=== PATIENT | female | born 1995 ===

== ENCOUNTER → 2019-02-18 | Outpatient (REF) | payer BC | LOC: M LAB REF 09:20 | PROVIDERS: ATTEND Physician Assistant | DX: R30.0 Dysuria (principal) ==

== ENCOUNTER → 2019-02-21 | Outpatient (REF) | payer BC ==
[2019-02-21 20:35] LABS: CHLAMYDIA DNA AMPLIFICATION NEGATIVE (NEGATIVE); GC DNA AMPLIFICATION NEGATIVE (NEGATIVE)
== END ==
LOC: M LAB REF 16:15
PROVIDERS: ATTEND Nurse Practitioner Family
DX: R30.0 Dysuria (principal)

== ENCOUNTER → 2024-06-14 | Outpatient (REF) | payer OTHER ==
[2024-06-14 14:03] LABS: BASO # 0.1 10^3/uL (0.0-0.2); BASO % 1.1 % (0.0-1.0); EOS # 0.1 10^3/uL (0.0-0.5); EOS % 1.1 % (0.0-3.0); HEMATOCRIT 36.1 % (36.0-47.0); HEMOGLOBIN 12.2 g/dl (12.0-15.5); LYMPH # 1.5 10^3/uL (1.5-5.0); LYMPH % 33.6 % (24.0-44.0); MEAN CORPUSCULAR HEMOGLOBIN 31.4 pg (27.0-33.0); MEAN CORPUSCULAR HGB CONC 33.8 g/dl (32.0-36.5); MONO # 0.6 10^3/uL (0.0-0.8); MONO % 12.5 % (2.0-8.0); NEUTROPHILS # 2.3 10^3/uL (1.5-8.5); NEUTROPHILS % 51.5 % (36.0-66.0); PLATELET COUNT, AUTOMATED 260 10^3/uL (150-450); RED BLOOD COUNT 3.88 10^6/uL (4.00-5.40); WHITE BLOOD COUNT 4.6 10^3/uL (4.0-10.0)
[2024-06-14 14:35] LABS: HEMOGLOBIN A1c 4.3 % (4.0-6.0)
[2024-06-14 14:40] LABS: TOTAL IRON BINDING CAPACITY 351 UG/DL (250-425)
[2024-06-14 14:42] LABS: ALBUMIN 3.8 G/DL (3.2-5.2); ALKALINE PHOSPHATASE 229 U/L (35-104); ALT/SGPT 166 U/L (7.0-40); AST/SGOT 112 U/L (<34); BILIRUBIN,TOTAL 0.4 MG/DL (0.3-1.2); BLOOD UREA NITROGEN 20 MG/DL (9-23); CALCIUM LEVEL 9.2 MG/DL (8.5-10.1); CARBON DIOXIDE LEVEL 26 MMOL/L (20-31); CHLORIDE LEVEL 104 MMOL/L (98-107); CHOLESTEROL LEVEL 158 MG/DL (<200); CHOLESTEROL RISK RATIO 2.66 (<5); CREATININE FOR GFR 0.83 MG/DL (0.55-1.30); FERRITIN 45.6 NG/ML (7.3-270.7); GLOMERULAR FILTRATION RATE > 60.0 (>60); GLUCOSE, FASTING 89 MG/DL (60-100); HDL CHOLESTEROL 59.2 MG/DL (>40); IRON (FE) 83 UG/DL (50-170); LDL CHOLESTEROL 82.4 MG/DL (<100); NON-HDL-C 98.8 MG/DL; PERCENT SATURATION 23.6 % (13.2-45.0); POTASSIUM SERUM 4.7 MMOL/L (3.5-5.1); SODIUM LEVEL 138 MMOL/L (136-145); TOTAL PROTEIN 7.3 G/DL (5.7-8.2); TRIGLYCERIDES LEVEL 82 MG/DL (<150)
[2024-06-14 14:43] LABS: THYROID STIMULATING HORMONE 2.454 uIU/ML (0.55-4.78)
== END ==
LOC: M LAB REF 13:34
PROVIDERS: ATTEND Nurse Practitioner Family
DX: E66.3 Overweight (principal); R53.83 Other fatigue; Z86.39 Personal history of other endocrine, nutritional and metabolic disease; Z11.9 Encounter for screening for infectious and parasitic diseases, unspecified

== ENCOUNTER → 2024-08-03 | Outpatient (REF) | payer OTHER ==
[2024-08-03 14:29] LABS: ALBUMIN 3.8 G/DL (3.2-5.2); ALKALINE PHOSPHATASE 100 U/L (35-104); ALT/SGPT 41 U/L (7.0-40); AST/SGOT 30 U/L (<34); BILIRUBIN,DIRECT < 0.1 MG/DL (<0.4); BILIRUBIN,TOTAL 0.3 MG/DL (0.3-1.2); TOTAL PROTEIN 6.8 G/DL (5.7-8.2)
== END ==
LOC: M LAB REF 12:22
PROVIDERS: ATTEND Nurse Practitioner Family
DX: R94.5 Abnormal results of liver function studies (principal)

== ENCOUNTER → 2025-03-18 | Outpatient (REF) | payer OTHER ==
[2025-03-18 18:37] LABS: AMORPHOUS SEDIMENT SMALL (NEGATIVE); APPEARANCE, URINE TURBID (CLEAR); BACTERIA, URINE AUTO NEGATIVE (NEGATIVE); BILIRUBIN, URINE AUTO NEGATIVE (NEGATIVE); BLOOD, URINE BLOOD 3+ (NEGATIVE); GLUCOSE, URINE (UA) AUTO NEGATIVE (NEGATIVE); KETONE, URINE AUTO NEGATIVE (NEGATIVE); LEUKOCYTE ESTERASE, URINE AUTO NEGATIVE (NEGATIVE); MUCUS, URINE LARGE (NEGATIVE); NITRITE, URINE AUTO NEGATIVE (NEGATIVE); PROTEIN, URINE AUTO 2+ mg/dL (NEGATIVE); RBC, URINE AUTO 12 /HPF (0-3); SPECIFIC GRAVITY URINE AUTO 1.018 (1.002-1.035); SQUAMOUS EPITHELIAL CELL UR AU 0 /HPF (0-6); UROBILINOGEN, URINE AUTO 0.2 mg/dL (0.0-2.0); WBC, URINE AUTO 7 /HPF (0-3)
== END ==
LOC: M LAB REF 16:55
DX: R30.0 Dysuria (principal)